=== PATIENT | male | born 1985 | race Caucasian/White ===

== ENCOUNTER 2018-12-18 18:40 | Emergency (ER) | payer BC, OTHER ==
[2018-12-18] MEDS ORDERED: ceFAZolin 1 GM Vial IM ONE (18:41)
[2018-12-18] MEDS ORDERED: Lidocaine 1% with EPINEPHrine 1:100,000 20 ML MDV INJECT ONE (18:41)
[2018-12-18] MEDS ORDERED: Bupivacaine 0.5% 10 ML SDV INJECT ONE (18:41)
[2018-12-18] MEDS ORDERED: Diphtheria,Pertussis(Acell),Tetanus Vaccine 0.5 ML Syringe IM ONE (18:43)
[2018-12-18] MEDS ORDERED: Water For Injection, Sterile 20 ML ONE (18:48)
[2018-12-18] MEDS ORDERED: ceFAZolin 1 GM in Premix Bag 1 BAG IV ONE (19:00)
--- NOTE | 2018-12-18 19:08 | EDM.PDOC ---
ED HPI GENERAL MEDICAL PROBLEM - General Stated Complaint: PT HURT RT HAND Time Seen by Provider: 12/18/18 18:40 Source of Information: Reports: Patient History Limitations: Reports: No Limitations - History of Present Illness INITIAL COMMENTS - FREE TEXT/NARRATIVE: History of present illness: []Patient is a left-handed male who got his right thumb caught in a fan of a semi. The amputated part was found by his boss and brought into the ER. Review of systems: As per history of present illness and below otherwise all systems reviewed and negative. Past medical history: As per history of present illness and as reviewed below otherwise noncontributory. Surgical history: As per history of present illness and as reviewed below otherwise noncontributory. Social history: No reported history of drug or alcohol abuse. Family history: As per history of present illness and as reviewed below otherwise noncontributory. Physical exam: General: Well developed, well nourished in NAD HEENT: Atraumatic, normocephalic, pupils reactive, negative for conjunctival pallor or scleral icterus, mucous membranes moist, throat clear, neck supple, nontender, trachea midline. Lungs: Clear to auscultation, breath sounds equal bilaterally, chest nontender. Heart: S1S2, regular, negative for clicks, rubs, or JVD. Abdomen: NABS, Soft, nondistended, nontender. Negative for masses or hepatosplenomegaly. Negative for costovertebral tenderness. Pelvis: Stable nontender. Genitourinary: Deferred. Rectal: Deferred. Extremities: Right thumb amputation distal to the MCP joint with shredded tissue no active bleeding,, negative for cords or calf pain. Neurovascular unremarkable. Neuro: Awake, alert, oriented. Cranial nerves II through XII unremarkable. Cerebellum unremarkable. Motor and sensory unremarkable throughout. Exam nonfocal. Skin:warm and dry Diagnostics: X-ray right hand-MCP joint is intact the proximal portion proximal phalanx is fractured Therapeutics: IV Ancef, tetanus status updated, declined a digital block and morphine for pain ED Course: 18:33-Renetta Mcdaniels called and recommended going to [facility] as they do not do reimplantation. Patient prefers to go to [place]. 18:40 [facility] was called and I spoke with Hai at the transfer center and a hand surgeon Dr. Lozano. Dr. Coleman in the ER accepts patient. Discussed with patient possibility of going to [place] and not having reimplantation done but would need to be evaluated by the hand surgeon and if any chance of hernia plantation as possible this is a hospital where it could be done. Patient did not want to go to [facility] or [place]. Impression: right thumb amputation Prescriptions: none Plan: Patient is being flown to [facility] in [place]. Definitive disposition and diagnosis as appropriate pending reevaluation and review of above. Duration: Hour(s): Right Hand Pain Score (Numeric/FACES): 8 - Related Data Allergies Allergy/AdvReac Type Severity Reaction Status Date / Time No Known Allergies Allergy Verified 12/18/18 18:57 Home Meds: Home Meds Joint Pill 1 tab PO DAILY 02/07/14 [History] [place]-3/DHA/Epa/Fish Oil [Fish Oil] 500 mg PO DAILY 02/07/14 [History] Past Medical History - Past Health History Medical/Surgical History: Denies Medical/Surgical History Review of Systems - Review of Systems Review Of Systems: See Below ED EXAM, GENERAL - Physical Exam Exam: See Below (See history of present illness) Course - Vital Signs Last Recorded V/S: Last Vital Signs Temp 97.1 F 12/18/18 18:58 Pulse 74 12/18/18 19:15 Resp 22 H 12/18/18 19:15 BP 155/100 H 12/18/18 19:15 Pulse Ox 95 12/18/18 19:15 - Orders/Labs/Meds Orders: Active Orders 24 hr Category Date Time Status Vaccines to be Administered [RC] PER UNIT ROUTINE Care 12/18/18 18:43 Active Meds: Medications Discontinued Medications Generic Name Dose Route Start Last Admin Trade Name Jodi PRN Reason Stop Dose Admin Bupivacaine HCl 10 ml 12/18/18 18:41 12/18/18 19:03 Sensorcaine-Mpf 0.5% INJECT 12/18/18 18:42 10 ml ONETIME ONE Administration Cefazolin Sodium 1 gm 12/18/18 18:41 12/18/18 18:59 Ancef IM 12/18/18 18:42 Not Given ONETIME ONE Diphtheria/Tetanus/Acell Pertussis 0.5 ml 12/18/18 18:43 12/18/18 19:02 Adacel IM 12/18/18 18:44 0.5 ml .ONCE ONE Administration Sterile Water Confirm 12/18/18 18:48 12/18/18 18:59 Sterile Water For Injection Administered 12/18/18 18:49 Not Given Dose 20 mls @ as directed .ROUTE .STK-MED ONE Cefazolin Sodium/Dextrose 1 gm 50 mls @ 100 mls/hr 12/18/18 19:00 12/18/18 19 :12 / Premix IV 12/18/18 19:29 100 mls/hr ONETIME ONE Administration Lidocaine/Epinephrine 20 ml 12/18/18 18:41 12/18/18 19:03 Xylocaine 1% With Epinephrine 1:100,000 INJECT 12/18/18 18:42 20 ml ONETIME ONE Administration Departure - Departure Time of Disposition: 19:34 Disposition: Home, Self-Care 01 Condition: Fair Clinical Impression: Amputation of right thumb Qualifiers: Encounter type: initial encounter Qualified Code(s): S68.011A - 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
--- NOTE | 2018-12-18 19:58 | CR ---
INDICATION: Trauma. Thumb amputation. Pain of the 2nd and 5th digits. COMPARISON: None. FINDINGS/IMPRESSION: Right hand, 6 views. There is amputation of the distal phalanx of the thumb and of the distal end of the proximal phalanx of the thumb. No additional fractures or dislocations are identified. No radiopaque foreign bodies are seen. Dictated by Ruben Hayes MD @ 12/18/2018 7:53:30 PM Dictated by: Ruben Hayes MD @ 12/18/2018 19:57:12 (Electronically Signed)
== END 2018-12-18 19:36 ==
LOC: MW.ED 18:40
DX: S68.011A Complete traumatic metacarpophalangeal amputation of right thumb, initial encounter (principal); W26.8XXA Contact with other sharp object(s), not elsewhere classified, initial encounter
CPT/HCPCS: 73130; 90715; 96365; 99284; J0690; J3490; 99285